=== PATIENT | female | born 1985 | race African-American/Black ===

== ENCOUNTER 2017-12-20 16:55 | Outpatient (CLI) | payer BC | END 2017-12-20 16:56 | disposition home or self-care (01) | LOC: BICRAD 16:55 | PROVIDERS: ATTEND Family Medicine | DX: M25.531 Pain in right wrist (principal) ==

== ENCOUNTER 2018-09-15 12:08 | Outpatient (CLI) | payer BC ==
--- NOTE | 2018-09-15 13:31 | ULT ---
THYROID ULTRASOUND: 09/15/18 COMPARISON: None. HISTORY: 33-year-old female, thyroid goiter. TECHNIQUE: Multiplanar levy scale sonographic imaging of the thyroid gland obtained. FINDINGS: Thyroid isthmus measures 3 mm in AP dimension. Right lobe measures 5.1 x 1.6 x 1.7 cm and left lobe m easures 1.4 x 5.0 x 1.8 cm. No discrete/dominant thyroid nodule noted on either side. IMPRESSION: Unremarkable thyroid ultrasound. POS: [facility]
== END 2018-09-15 12:09 | disposition home or self-care (01) ==
LOC: BICULT 12:08
PROVIDERS: ATTEND Obstetrics & Gynecology
DX: E04.9 Nontoxic goiter, unspecified (principal)
CPT/HCPCS: 76536